=== PATIENT | male | born 1985 | race Two or more races ===

== ENCOUNTER 2024-11-03 14:42 | Inpatient (IN) | payer MEDICAID, OTHER ==
[~2024-11-03] VITALS: Ht 177.8 cm; Wt 64.7 kg
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
[2024-11-03] MEDS: SODIUM CHLORIDE 0.9% 1,000 ML IV ONE (17:10)
[2024-11-03] MEDS: THIAMINE 100mg/ml INJ (200mg/2ml VIAL) IV ONE (17:29)
[2024-11-03] MEDS: NALOXONE HCL 1MG/ML 2ML SYRINGE IV ONE ×2 (20:05→21:04)
[2024-11-03] MEDS: NALOXONE HCL 1MG/ML 2ML SYRINGE ONE (20:06)
[2024-11-03 20:28] LABS: Hematocrit 37.9 % (41.0-53.0); Hemoglobin 13.3 g/dL (13.5-17.5); Mean Corpuscular Hemoglobin 34.7 pg (28.0-32.0); Mean Corpuscular Volume 99.1 fL (80.0-100.0); Nucleated Red Blood Cells % 0.0 %
[2024-11-03 20:47] LABS: Alanine Aminotransferase 26 U/L (7-40); Albumin 4.4 g/dL (3.2-4.8); Alkaline Phosphatase 103 U/L (46-116); Anion Gap 12 (5-15); Bilirubin, Total 0.3 mg/dL (0.2-1.0); Carbon Dioxide 25 mmol/L (20-31); Magnesium 2.1 mg/dL (1.6-2.6); Total Protein 7.3 g/dL (5.7-8.2)
[2024-11-03 20:48] LABS: Acetaminophen < 2.0 UG/ML (10.0-20.0); Salicylate < 3.0 mg/dL (-30)
[2024-11-03 20:49] LABS: BUN/Creatinine Ratio 6.6 (10.0-20.0); Blood Urea Nitrogen < 5 mg/dL (9-23); Calcium 8.7 mg/dL (8.7-10.4); Chloride 110 mmol/L (98-107); Glucose 140 mg/dL (74-106); Potassium 2.9 mmol/L (3.5-5.1); Sodium 147 mmol/L (136-145)
--- NOTE | 2024-11-03 20:52 | DVH ---
EXAM: CT HEAD WITHOUT CONTRAST INDICATION: ALOC TECHNIQUE: CT of the head without intravenous contrast. Radiation Dose Information: CT Dose: CTDI volume is 58.07 mGy. Dose-length product is 1027.99 mGy*cm The dose indicators for CT are the volume Computed Tomography (CT) Dose Index (CTDIvol) and the Dose Length Product (DLP), and are measured in units of mGy and mGy-cm, respectively. These indicators are not patient dose, but values generated from the CT scanner acquisition factors. The report includes radiation exposure data for exposures received during this examination. COMPARISON: None FINDINGS: There is no evidence of acute intracranial hemorrhage, extra-axial collection, mass effect, midline s hift, herniation or hydrocephalus. The ventricles, sulci and cisterns are age appropriate. The briones-white differentiation is intact. Patchy periventricular and subcortical white matter hypoattenuation is nonspecific but may be related to small vessel ischemic disease. The visualized paranasal sinuses and mastoid air cells are clear. The surrounding soft tissues and osseous structures are unremarkable. IMPRESSION: 1. No acute intracranial abnormality.
--- NOTE | 2024-11-03 20:54 | DVH ---
EXAM: XY CHEST PORTABLE CLINICAL HISTORY: SOB TECHNIQUE: Single AP view of the chest WID: COMPARISON: None FINDINGS: Lines and tubes: Cholecystectomy clips are seen. Chest: The heart size and pulmonary vasculature is within normal limits. No pleural effusion, pneumothorax, or consolidation. Lung apices are not entirely included in the fie ld of view. The osseous structures are grossly intact. IMPRESSION: 1. No acute cardiopulmonary abnormality.
[2024-11-03] MEDS: POTASSIUM CHL 20MEQ/100ML 100 ML IV ONE (22:00)
--- NOTE | 2024-11-03 23:16 | DVHHP2 ---
History of Present Illness Reason for Visit: Altered mental status History of Present Illness 39-year-old male presents for evaluation of altered mental status. Patient initially presented for evaluation of a wound that is healing on his left forearm. He was offered discharge and was not able to be located by ER nurses. Patient was found unresponsive next to a smoking area. After multiple doses of Narcan patient became responsive. Currently he is alert oriented. Reports using an unknown drug purchased on the street. He also had a high alcohol level. No other acute complaints reported. Past Medical History Denies Past Surgical History Denies Smoke: No ALCOHOL: heavy Drugs: Marijuana Review of Systems Review of Systems Review of systems are currently negative otherwise addressed in HPI. Allergies: Coded Allergies: Levofloxacin (Verified Allergy, Unknown, 11/03/24) Exam Vital Signs Vital Signs Date Time Temp Pulse Resp B/P (MAP) Pulse Ox O2 Delivery O2 Flow Rate FiO2 11/03/24 20:04 120 11/03/24 17:13 16 97 Room Air 11/03/24 17:13 98.8 108/64 (79) 98.8 Exam Gen: 39-year-old male in no apparent distress. Skin: Warm, dry, normal color and texture, no rash. HEENT: Normocephalic atraumatic, mucous membranes moist and pink. Neck: Cervical and supraclavicular nodes normal without enlargement, trachea is midline, thyroid gland is normal without masses. Pulmonary: Clear to auscultation and percussion bilaterally. Cardiac: Regular rate and rhythm. No murmur Abdomen: Soft, nontender, nondistended, bowel sounds present all 4 quadrants, no guarding, no rigidity, no organomegaly. Extremities: No cyanosis, clubbing, no edema Neuro: Cranial nerves II through XII grossly intact, normal affect and speech, no focal motor deficits. Labs/Xrays ORDERING PHYSICIAN: RAPHAEL VILLA MD PROCEDURE(s): CXRP - CHEST PORTABLE REASON: SOB ORDER NUMBER(s): [id number], ACCESSION NUMBER(s): [id number] EXAM: XY CHEST PORTABLE CLINICAL HISTORY: SOB TECHNIQUE: Single AP view of the chest WID: COMPARISON: None FINDINGS: Lines and tubes: Cholecystectomy clips are seen. Chest: The heart size and pulmonary vasculature is within normal limits. No pleural effusion, pneumothorax, or consolidation. Lung apices are not entirely included in the field of view. The osseous structures are grossly intact. IMPRESSION: 1. No acute cardiopulmonary abnormality. RING PHYSICIAN: RAPHAEL VILAL MD PROCEDURE(s): HWOCT - HEAD WITHOUT CONTRAST REASON: ALOC ORDER NUMBER(s): [id number], ACCESSION NUMBER(s): [id number] EXAM: CT HEAD WITHOUT CONTRAST INDICATION: ALOC TECHNIQUE: CT of the head without intravenous contrast. Radiation Dose Information: CT Dose: CTDI volume is 58.07 mGy. Dose-length product is 1027.99 mGy*cm The dose indicators for CT are the volume Computed Tomography (CT) Dose Index (CTDIvol) and the Dose Length Product (DLP), and are measured in units of mGy and mGy-cm, respectively. These indicators are not patient dose, but values generated from the CT scanner acquisition factors. The report includes radiation exposure data for exposures received during this examination. COMPARISON: None FINDINGS: There is no evidence of acute intracranial hemorrhage, extra-axial collection, mass effect, midline shift, herniation or hydrocephalus. The ventricles, sulci and cisterns are age appropriate. The briones-white differentiation is intact. Patchy periventricular and subcortical white matter hypoattenuation is nonspecific but may be related to small vessel ischemic disease. The visualized paranasal sinuses and mastoid air cells are clear. The surrounding soft tissues and osseous structures are unremarkable. IMPRESSION: 1. No acute intracranial abnormality. Labs Test 11/03/24 20:15 Range/Units White Blood Count 6.3 4.4-10.8 10^3/uL Red Blood Count 3.83 L 4.5-5.90 10^6/uL Hemoglobin 13.3 L 13.5-17.5 g/dL Hematocrit 37.9 L 41.0-53.0 % Mean Corpuscular Volume 99.1 80.0-100.0 fL Mean Corpuscular Hemoglobin 34.7 H 28.0-32.0 pg Mean Corpuscular Hemoglobin Concent 35.1 32.0-36.0 g/dL Red Cell Distribution Width 13.3 11.8-14.3 % Platelet Count 224 140-450 10^3/uL Mean Platelet Volume 6.6 L 6.9-10.8 fL Neutrophils (%) (Auto) 59.7 37.0-80.0 % Lymphocytes (%) (Auto) 29.8 10.0-50.0 % Monocytes (%) (Auto) 7.6 0.0-12.0 % Eosinophils (%) (Auto) 0.9 0.0-7.0 % Basophils (%) (Auto) 2.0 0.0-2.0 % Neutrophils # (Auto) 3.8 1.6-8.6 10 ^3/uL Lymphocytes # (Auto) 1.9 0.4-5.4 10 ^3/uL Monocytes # (Auto) 0.5 0-1.3 10 ^3/uL Eosinophils # (Auto) 0.1 0-0.8 10 ^3/uL Basophils # (Auto) 0.1 0-0.2 10 ^3/uL Nucleated Red Blood Cells 0.0 % Sodium Level 147 H 136-145 mmol/L Potassium Level 2.9 L 3.5-5.1 mmol/L Chloride Level 110 H 98-107 mmol/L Carbon Dioxide Level 25 20-31 mmol/L Anion Gap 12 5-15 Blood Urea Nitrogen < 5 L 9-23 mg/dL Creatinine 0.76 0.700-1.30 mg/dL Glomerular Filtration Rate Calc 117 >90 mL/min BUN/Creatinine Ratio 6.6 L 10.0-20.0 Serum Glucose 140 H 74-106 mg/dL Calcium Level 8.7 8.7-10.4 mg/dL Magnesium Level 2.1 1.6-2.6 mg/dL Total Bilirubin 0.3 0.2-1.0 mg/dL Aspartate Amino Transferase (AST) 26 13-40 U/L Alanine Aminotransferase (ALT) 26 7-40 U/L Alkaline Phosphatase 103 46-116 U/L Total Protein 7.3 5.7-8.2 g/dL Albumin 4.4 3.2-4.8 g/dL Salicylates Level < 3.0 -30 mg/dL Acetaminophen Level < 2.0 L 10.0-20.0 UG/ML Plasma/Serum Blood Alcohol 298.4 H <10 mg/dL SEPSIS Sepsis Screen Date sepsis recognized/suspect: Nov 03, 2024 Time Sepsis recognized/suspect: 1448 Recent Procedure: No On Antibiotic Therapy: No Respiratory Rate >20: No Heart Rate >90: Yes Temp<36 C (96.8 F) or >38.3 C: No SBP <90 or MAP <65 mmHG: No New Acute Mental Status Change: No Is the patient on CPAP, BIPAP,: No Physician Orders Chest Portable (11/03/24 20:07) Head Without Contrast (11/03/24 20:07) Electrocardigram (11/03/24 20:45) Potassium Chl 20meq/100ml (11/03/24 21:15) Drug Screen (11/03/24 21:23) Urinalysis (11/03/24 21:23) Thiamine Tab (11/04/24 10:00) Folic Acid Tablet (11/04/24 10:00) Chlordiazepoxide Hcl Capsule (Librium Ca (11/03/24 23:15) Basic Metabolic Panel (11/04/24 04:00) Admit (11/03/24 23:10) Temazepam (Restoril) (11/03/24 23:15) Ondansetron Hcl (Zofran) (11/03/24 23:15) Condition: Stable (11/03/24 23:10) Bedrest With Bathroom Privileg (11/03/24 23:10) Vital Signs Date Time Temp Pulse Resp B/P (MAP) Pulse Ox O2 Delivery O2 Flow Rate FiO2 11/03/24 20:04 120 11/03/24 17:13 118 16 97 Room Air 11/03/24 17:13 98.8 63 16 108/64 (79) 98 98.8 Laboratory Tests Test 11/03/24 20:15 White Blood Count 6.3 10^3/uL (4.4-10.8) Medications Medications Dose Ordered Sig/Coy Route Start Time Stop Time Status Last Admin Dose Admin Naloxone HCl 2 mg ONCE ONCE IV 11/03/24 20:15 11/03/24 20:16 DC 11/03/24 20:05 2 MG Naloxone HCl 2 mg ONCE ONCE IV 11/03/24 21:15 11/03/24 21:16 DC 11/03/24 21:04 2 MG Sodium Chloride 1,000 ml @ 1,000 mls/hr Q1H ONCE IV 11/03/24 16:15 11/03/24 17:14 DC 11/03/24 17:10 1,000 MLS/HR Thiamine HCl 100 mg ONCE ONCE IV 11/03/24 16:15 11/03/24 16:16 DC 11/03/24 17:29 100 MG Assessment/Plan Assessment/Plan Assessment Toxic encephalopathy Hypokalemia Alcohol intoxication Plan Admit the patient to [facility] to the hospitalist Karmen Thiamine/folic acid Continue treatment per orders. Plan discussed with: Patient My Orders Orders - RACHEL PADILLA Procedure Category Date Status Time Drug Screen LAB 11/03/24 Logged 21:23 Urinalysis LAB 11/03/24 Logged 21:23 Thiamine Tab PHA 11/04/24 Transmitted 10:00 Folic Acid Tablet PHA 11/04/24 Transmitted 10:00 Chlordiazepoxide Hcl PHA 11/03/24 Transmitted Capsule (Librium Ca 23:15 Basic Metabolic Panel LAB 11/04/24 Verified 04:00 Admit ADMIT 11/03/24 Transmitted 23:10 Temazepam (Restoril) PHA 11/03/24 Transmitted 23:15 Ondansetron Hcl PHA 11/03/24 Transmitted (Zofran) 23:15 Condition: Stable JAX 11/03/24 Transmitted 23:10 Bedrest With Bathroom JAX 11/03/24 Transmitted Privileg 23:10 Date of Service: Nov 03, 2024 Billing Provider: RACHEL PADILLA Common Visit Codes: [id number] INP/OBS CARE (MOD) RACHEL PADILLA Nov 03, 2024 23:16
[2024-11-04] MEDS: POTASSIUM CHL 20 Meq TABLET PO ONE
[2024-11-04 04:16] LABS: Potassium 3.7 mmol/L (3.5-5.1)
[2024-11-04 04:17] LABS: Anion Gap 10 (5-15); Calcium 8.8 mg/dL (8.7-10.4); Carbon Dioxide 30 mmol/L (20-31)
[2024-11-04 04:19] LABS: Chloride 107 mmol/L (98-107); Sodium 147 mmol/L (136-145)
[2024-11-04 04:22] LABS: BUN/Creatinine Ratio 7.7 (10.0-20.0); Glucose 99 mg/dL (74-106)
[2024-11-04 04:23] LABS: Blood Urea Nitrogen 5 mg/dL (9-23)
[2024-11-04 06:55] LABS: Urine Protein, UAD 1+ (Negative)
[2024-11-04 07:03] LABS: Amphetamine Screen, Urine Neg (NEGATIVE); Barbiturate Scree,Urine Neg (NEGATIVE); Benzodiazephine Screen, Urine Pos (NEGATIVE); Cannabinoid Screen, Urine Pos (NEGATIVE); Cocaine Screen, Urine Neg (NEGATIVE)
[2024-11-04 07:07] LABS: Opiate Scree,Urine Neg (NEGATIVE); Phencyclidine Screen, Urine Neg (NEGATIVE)
--- NOTE | 2024-11-04 07:09 | ECG ---
[facility] Test Date: 2024-11-03 Test Time: 20:04:44 Pat Name: SPIKE CONTRERAS Department: Room: [address] [place] [address] A Gender: M Nursing Associate: : 1985 Requested By: RAPHAEL VILLA Order Number: [id number] Reading MD: Thomas Matamoros Measurements Intervals [place] Rate: 120 P: 73 MD: 175 QRS: 70 QRSD: 90 T: 29 QT: 322 QTc: 455 Interpretive Statements Sinus tachycardia Borderline T wave abnormalities Electronically Signed On 11-04-2024 14:28:14 PDT by Thomas Matamoros Please click the below link to view image of tracing.
[2024-11-04] MEDS: THIAMINE HCL 100 MG TAB PO SCH (08:06)
[2024-11-04] MEDS: FOLIC ACID 1 MG TAB PO SCH (08:06)
[2024-11-04] MEDS ORDERED: SODIUM CHLORIDE 0.9% 1,000 ML IV SCH (13:45)
--- NOTE | 2024-11-04 13:46 | DVHPN2 ---
Subjective Patient reports having pain to his left wrist. Reviewed: Care Plan, H&P, Labs, Medications, Previous Orders Changes from previous H/P or p: No Changes General: Per HPI Objective Vitals Vital Signs Date Time Temp Pulse Resp B/P (MAP) Pulse Ox O2 Delivery O2 Flow Rate FiO2 11/04/24 12:00 98 11/04/24 11:03 12 120/65 (83) 96 11/04/24 08:00 98.9 98.9 11/04/24 07:33 Room Air* 0 21 General Appearance: Alert, Oriented X3, Cooperative, mild distress HEENT: Atraumatic Lungs: Clear to auscultation, Normal air movement Cardiovascular: Normal S1, Normal S2 Abdomen: Normal bowel sounds, Soft, No tenderness, No hepatospenomegaly Back: Flank Tenderness, Midline Tenderness Musculoskeletal: Normal sensory function, Normal motor function Extremities: No clubbing, No cyanosis Skin: Wounds (See nurse notes and pictures) Psych/Mental Status: Mental status NL, Mood NL Medications Current Medications Medications Dose Ordered Sig/Coy Route Start Time Stop Time Status Last Admin Dose Admin Thiamine HCl 100 mg DAILY PO 11/04/24 10:00 11/04/24 08:06 100 MG Folic Acid 1 mg DAILY PO 11/04/24 10:00 11/04/24 08:06 1 MG Chlordiazepoxide HCl 25 mg Q8HPRN PRN PO 11/03/24 23:15 Temazepam 15 mg QHSP PRN PO 11/03/24 23:15 Ondansetron HCl 4 mg Q4HP PRN IV 11/03/24 23:15 Sodium Chloride 1,000 ml @ 100 mls/hr Q10H IV 11/04/24 13:45 UNV Laboratory Results Laboratory Tests 11/03/24 20:15 11/04/24 03:43 Chemistry Test 11/03/24 20:15 11/04/24 03:43 Albumin 4.4 g/dL (3.2-4.8) Calcium Level 8.7 mg/dL (8.7-10.4) 8.8 mg/dL (8.7-10.4) Magnesium Level 2.1 mg/dL (1.6-2.6) Total Protein 7.3 g/dL (5.7-8.2) LFT Test 11/03/24 20:15 Alanine Aminotransferase (ALT) 26 U/L (7-40) Alkaline Phosphatase 103 U/L (46-116) Aspartate Amino Transferase (AST) 26 U/L (13-40) Total Bilirubin 0.3 mg/dL (0.2-1.0) Urinalysis Test 11/04/24 06:35 Urine Color Light-yellow (Yellow) Urine Clarity Clear (Clear) Urine pH 6.0 (5.0-9.0) Urine Specific [place] 1.013 (1.001-1.035) Urine Protein 1+ (Negative) H Urine Ketones Negative (Negative) Urine Blood Negative /uL (Negative) Urine Nitrite Negative (Negative) Urine Bilirubin Negative (Negative) Urine Urobilinogen Normal mg/dL (Negative) Urine Leukocyte Esterase Negative /uL (Negative) Urine RBC 1 /hpf (0 - 3) Urine Microscopic WBC 1 /HPF (0-3) Urine Squamous Epithelial Cells None seen /hpf (<5) Urine Bacteria None seen /hpf (None Seen) Urine Glucose Normal mg/dL (Normal) Labs and/or images reviewed: Labs reviewed by me, Image(s) reviewed by me Assessment/Plan Assessment/Plan Impression: -toxic metabolic encephalopathy -acute alcohol withdrawal -left wrist cellulitis -polysubstance abuse including fentanyl, cannabinoids, alcohol, benzodiazepines Plan: -IV hydration -Silvadene cream to left wrist -continue Librium for withdrawal symptoms -antiemetics -pain management Total time spent with patient discussing and formulating plan of care: 35 minutes. This medical document was created using an electronic medical record system with [employer] dictation system. Although this document has been carefully reviewed, there may still be some phonetic and typographical errors. These areas are purely typographical due to imperfections of the software programs, and do not reflect any compromise in the patient's medical care. Plan discussed with: Patient, Other (RN) My Orders Orders - PAYAL SANCHEZ NP Procedure Category Date Status Time Sodium Chloride 0.9% PHA 11/04/24 Logged 13:45 Hydrocodone-Acet PHA 11/04/24 Transmitted 10/325mg Tab ([place] 13:45 Silver Sulfadiazine PHA 11/04/24 Transmitted (Silvadene) 13:45 Date of Service: Nov 04, 2024 Billing Provider: PAYAL SANCHEZ NP Common Visit Codes: [id number] INP/OBS CARE(HIGH) PAYAL SANCHEZ NP Nov 04, 2024 13:46
[2024-11-04] MEDS: SILVER SULFADIAZINE 1 % TOPICAL CREAM 50GM TOP SCH (14:27)
[2024-11-04] MEDS: HYDROcodone-ACET 10/325MG TAB PO PRN (14:39)
[2024-11-04] MEDS: LACTATED RINGER'S 1,000 ML IV SCH (14:56)
[2024-11-04 19:18] VITALS: PULSE 107; RESP 16; O2SAT 96
[2024-11-04] MEDS: TEMAZEPAM 15 MG CAP PO PRN (22:14)
[2024-11-04] MEDS ORDERED: QUET300T24 PO (22:18)
[2024-11-04] MEDS ORDERED: DIAZ10TA3 PO (23:20)
[2024-11-05] VITALS (9 sets, daily range): BP systolic 118–136; BP diastolic 81–91; PULSE 82–90; RESP 16–20; TEMP 97.1–98.5; O2SAT 93–99
[2024-11-05] MEDS: ONDANSETRON HCL 4 MG/2 ML VIAL IV PRN (08:28)
--- NOTE | 2024-11-05 15:11 | DVHPN2 ---
Subjective Tremors Reviewed: Care Plan, H&P, Labs, Medications, Previous Orders Changes from previous H/P or p: No Changes General: Per HPI Objective Vitals Vital Signs Date Time Temp Pulse Resp B/P (MAP) Pulse Ox O2 Delivery O2 Flow Rate FiO2 11/05/24 14:36 98.5 82 20 132/91 (105) 98 98.5 11/05/24 13:41 Room Air* 0 21 General Appearance: Alert, Oriented X3, Cooperative, mild distress HEENT: Atraumatic Lungs: Clear to auscultation, Normal air movement Cardiovascular: Normal S1, Normal S2 Abdomen: Normal bowel sounds, Soft, No tenderness, No hepatospenomegaly Back: Flank Tenderness, Midline Tenderness Musculoskeletal: Normal sensory function, Normal motor function Extremities: No clubbing, No cyanosis Skin: Wounds (See nurse notes and pictures) Psych/Mental Status: Mental status NL, Mood NL Medications Current Medications Medications Dose Ordered Sig/Coy Route Start Time Stop Time Status Last Admin Dose Admin Thiamine HCl 100 mg DAILY PO 11/04/24 10:00 11/05/24 09:39 100 MG Folic Acid 1 mg DAILY PO 11/04/24 10:00 11/05/24 09:39 1 MG Chlordiazepoxide HCl 25 mg Q8HPRN PRN PO 11/03/24 23:15 11/05/24 10:28 25 MG Temazepam 15 mg QHSP PRN PO 11/03/24 23:15 11/04/24 22:14 15 MG Ondansetron HCl 4 mg Q4HP PRN IV 11/03/24 23:15 11/05/24 08:28 4 MG Acetaminophen/ Hydrocodone Bitart 1 tab Q6HP PRN PO 11/04/24 13:45 11/05/24 11:38 1 TAB Silver Sulfadiazine 1 applic DAILY TOP 11/04/24 13:45 11/04/24 14:27 1 APPLIC Lactated Ringer's 1,000 ml @ 100 mls/hr Q10H IV 11/04/24 14:45 11/04/24 14:56 100 MLS/HR Laboratory Results Laboratory Tests 11/03/24 20:15 11/04/24 03:43 Urinalysis Test 11/04/24 06:35 Urine Color Light-yellow (Yellow) Urine Clarity Clear (Clear) Urine pH 6.0 (5.0-9.0) Urine Specific [place] 1.013 (1.001-1.035) Urine Protein 1+ (Negative) H Urine Ketones Negative (Negative) Urine Blood Negative /uL (Negative) Urine Nitrite Negative (Negative) Urine Bilirubin Negative (Negative) Urine Urobilinogen Normal mg/dL (Negative) Urine Leukocyte Esterase Negative /uL (Negative) Urine RBC 1 /hpf (0 - 3) Urine Microscopic WBC 1 /HPF (0-3) Urine Squamous Epithelial Cells None seen /hpf (<5) Urine Bacteria None seen /hpf (None Seen) Urine Glucose Normal mg/dL (Normal) Assessment/Plan Assessment/Plan Impression: -toxic metabolic encephalopathy -acute alcohol withdrawal -left wrist cellulitis -polysubstance abuse including fentanyl, cannabinoids, alcohol, benzodiazepines Plan: Events: Persistent withdrawal symptoms -Silvadene cream to left wrist -continue Librium for withdrawal symptoms -antiemetics -pain management -Repeat labs in am Total time spent with patient discussing and formulating plan of care: 35 minutes. This medical document was created using an electronic medical record system with [employer] dictation system. Although this document has been carefully reviewed, there may still be some phonetic and typographical errors. These areas are purely typographical due to imperfections of the software programs, and do not reflect any compromise in the patient's medical care. Plan discussed with: Patient, Other (RN) My Orders Orders - PAYAL SANCHEZ NP Procedure Category Date Status Time * Cso CONS 11/04/24 Transmitted Consult 22:52 Mrsa Screen NABIL 11/04/24 Uncollected 22:52 * Dietary Consult CONS 11/04/24 Transmitted 22:52 Regular Diet DIET 11/05/24 Transmitted Dinner Basic Metabolic Panel LAB 11/06/24 Verified 04:00 Date of Service: Nov 05, 2024 Billing Provider: PAYAL SANCHEZ NP Common Visit Codes: [id number] INP/OBS CARE(HIGH) PAYAL SANCHEZ NP Nov 05, 2024 15:11
[2024-11-06] VITALS (7 sets, daily range): BP systolic 106–138; BP diastolic 56–90; PULSE 18–89; RESP 16–88; TEMP 97.7–98.8; O2SAT 95–98
[2024-11-06 06:42] LABS: Anion Gap 10 (5-15); Carbon Dioxide 28 mmol/L (20-31); Chloride 102 mmol/L (98-107); Sodium 140 mmol/L (136-145)
[2024-11-06 06:44] LABS: Calcium 9.3 mg/dL (8.7-10.4)
[2024-11-06 06:47] LABS: Potassium 3.4 mmol/L (3.5-5.1)
[2024-11-06 06:48] LABS: Glucose 83 mg/dL (74-106)
[2024-11-06 06:49] LABS: BUN/Creatinine Ratio 10.8 (10.0-20.0); Blood Urea Nitrogen 7 mg/dL (9-23)
--- NOTE | 2024-11-06 09:08 | DVHPN2 ---
Subjective Patient continues to have cold sweats and tremors. Reviewed: Care Plan, H&P, Labs, Medications, Previous Orders Changes from previous H/P or p: No Changes General: Per HPI Objective Vitals Vital Signs Date Time Temp Pulse Resp B/P (MAP) Pulse Ox O2 Delivery O2 Flow Rate FiO2 11/06/24 05:00 98.1 82 17 106/56 (73) 97 98.1 11/05/24 20:00 Room Air* 0 21 Intake/Output Intake and Output 11/06/24 07:00 Intake Total 450 ml Balance 450 ml Intake Oral 450 ml General Appearance: Alert, Oriented X3, Cooperative, mild distress HEENT: Atraumatic Lungs: Clear to auscultation, Normal air movement Cardiovascular: Normal S1, Normal S2 Abdomen: Normal bowel sounds, Soft, No tenderness, No hepatospenomegaly Back: Flank Tenderness, Midline Tenderness Musculoskeletal: Normal sensory function, Normal motor function Extremities: No clubbing, No cyanosis Skin: Wounds (See nurse notes and pictures) Psych/Mental Status: Mental status NL, Mood NL Medications Current Medications Medications Dose Ordered Sig/Coy Route Start Time Stop Time Status Last Admin Dose Admin Thiamine HCl 100 mg DAILY PO 11/04/24 10:00 11/05/24 09:39 100 MG Folic Acid 1 mg DAILY PO 11/04/24 10:00 11/05/24 09:39 1 MG Chlordiazepoxide HCl 25 mg Q8HPRN PRN PO 11/03/24 23:15 11/06/24 05:41 25 MG Temazepam 15 mg QHSP PRN PO 11/03/24 23:15 11/05/24 23:38 15 MG Ondansetron HCl 4 mg Q4HP PRN IV 11/03/24 23:15 11/05/24 08:28 4 MG Acetaminophen/ Hydrocodone Bitart 1 tab Q6HP PRN PO 11/04/24 13:45 11/06/24 00:29 1 TAB Silver Sulfadiazine 1 applic DAILY TOP 11/04/24 13:45 11/04/24 14:27 1 APPLIC Lactated Ringer's 1,000 ml @ 100 mls/hr Q10H IV 11/04/24 14:45 11/05/24 20:36 100 MLS/HR Laboratory Results Laboratory Tests 11/03/24 20:15 11/06/24 05:19 Chemistry Test 11/06/24 05:19 Calcium Level 9.3 mg/dL (8.7-10.4) Urinalysis Test 11/04/24 06:35 Urine Color Light-yellow (Yellow) Urine Clarity Clear (Clear) Urine pH 6.0 (5.0-9.0) Urine Specific [place] 1.013 (1.001-1.035) Urine Protein 1+ (Negative) H Urine Ketones Negative (Negative) Urine Blood Negative /uL (Negative) Urine Nitrite Negative (Negative) Urine Bilirubin Negative (Negative) Urine Urobilinogen Normal mg/dL (Negative) Urine Leukocyte Esterase Negative /uL (Negative) Urine RBC 1 /hpf (0 - 3) Urine Microscopic WBC 1 /HPF (0-3) Urine Squamous Epithelial Cells None seen /hpf (<5) Urine Bacteria None seen /hpf (None Seen) Urine Glucose Normal mg/dL (Normal) Labs and/or images reviewed: Labs reviewed by me, Image(s) reviewed by me Assessment/Plan Assessment/Plan Impression: -toxic metabolic encephalopathy -acute alcohol withdrawal -left wrist cellulitis -polysubstance abuse including fentanyl, cannabinoids, alcohol, benzodiazepines Plan: Events: Patient continues to have fevers, chills, intermittent nausea. -potassium replacement -Silvadene cream to left wrist -continue Librium for withdrawal symptoms -antiemetics -pain management -Repeat labs in am Total time spent with patient discussing and formulating plan of care: 35 minutes. This medical document was created using an electronic medical record system with [employer] dictation system. Although this document has been carefully reviewed, there may still be some phonetic and typographical errors. These areas are purely typographical due to imperfections of the software programs, and do not reflect any compromise in the patient's medical care. Plan discussed with: Patient, Other (RN) My Orders Orders - PAYAL SANCHEZ NP Procedure Category Date Status Time Regular Diet DIET 11/05/24 Transmitted Dinner Potassium Effervesent PHA 11/06/24 Logged Tab (Klor-Con/Ef) 09:00 Date of Service: Nov 06, 2024 Billing Provider: PAYAL SANCHEZ NP Common Visit Codes: [id number] INP/OBS CARE(HIGH) PAYAL SANCHEZ NP Nov 06, 2024 09:08
[2024-11-06] MEDS: POTASSIUM EFFERVESENT TAB 25 MEQ PO ONE (10:06)
--- NOTE | 2024-11-06 18:44 | DVH ---
EXAM: XY CHEST XRAY 1 VIEW TECHNIQUE: Single frontal chest radiograph CLINICAL HISTORY: chest pain, rule out rib fx COMPARISON: XY CHEST PORTABLE on DOS: 11/03/24 Findings/Impression: Frontal chest radiograph demonstrates no acute osseous or superficial soft tissue abnormalities. The trachea is midline. The cardiac silhouette and mediastinum are within normal limits. No pneumothorax, pleural effusions, or consolidations.
[2024-11-07 01:00] VITALS: BP 125/85; PULSE 69; RESP 17; TEMP 98; O2SAT 99
[2024-11-07 05:00] VITALS: BP 123/82; PULSE 75; RESP 16; TEMP 97.6; O2SAT 98
[2024-11-07 07:24] LABS: Anion Gap 10 (5-15); Carbon Dioxide 27 mmol/L (20-31); Chloride 104 mmol/L (98-107); Potassium 3.7 mmol/L (3.5-5.1); Sodium 141 mmol/L (136-145)
[2024-11-07 07:26] LABS: Calcium 9.5 mg/dL (8.7-10.4)
[2024-11-07 07:30] LABS: Glucose 88 mg/dL (74-106)
[2024-11-07 07:31] LABS: BUN/Creatinine Ratio 11.5 (10.0-20.0)
[2024-11-07 07:33] LABS: Blood Urea Nitrogen 7 mg/dL (9-23)
[2024-11-07 09:00] VITALS: BP 129/88; PULSE 71; RESP 18; TEMP 97.7; O2SAT 99
[2024-11-07] MEDS ORDERED: THIA100T10 PO (12:05)
[2024-11-07] MEDS ORDERED: LORA-655 PO (12:05)
[2024-11-07 13:00] VITALS: BP 111/74; PULSE 92; RESP 18; TEMP 97.8; O2SAT 98
--- NOTE | 2024-11-07 13:11 | DVHDS2 ---
Discharge Summary Date of Admission Nov 03, 2024 at 23:10 Date of Discharge: Nov 07, 2024 Admitting Diagnosis Toxic metabolic encephalopathy Labs/Diagnostic Data: Laboratory Results Test 11/07/24 06:28 11/04/24 06:35 11/03/24 20:15 Sodium Level 141 mmol/L (136-145) Potassium Level 3.7 mmol/L (3.5-5.1) Chloride Level 104 mmol/L (98-107) Carbon Dioxide Level 27 mmol/L (20-31) Anion Gap 10 (5-15) Blood Urea Nitrogen 7 mg/dL (9-23) Creatinine 0.61 mg/dL (0.700-1.30) Glomerular Filtration Rate Calc 125 mL/min (>90) BUN/Creatinine Ratio 11.5 (10.0-20.0) Serum Glucose 88 mg/dL (74-106) Calcium Level 9.5 mg/dL (8.7-10.4) Urine Color Light-yellow (Yellow) Urine Clarity Clear (Clear) Urine pH 6.0 (5.0-9.0) Urine Specific [place] 1.013 (1.001-1.035) Urine Protein 1+ (Negative) Urine Ketones Negative (Negative) Urine Blood Negative /uL (Negative) Urine Nitrite Negative (Negative) Urine Bilirubin Negative (Negative) Urine Urobilinogen Normal mg/dL (Negative) Urine Leukocyte Esterase Negative /uL (Negative) Urine RBC 1 /hpf (0 - 3) Urine Microscopic WBC 1 /HPF (0-3) Urine Squamous Epithelial Cells None seen /hpf (<5) Urine Bacteria None seen /hpf (None Seen) Urine Glucose Normal mg/dL (Normal) Urine Opiates Screen Neg (NEGATIVE) Urine Fentanyl Screen Pos (NEGATIVE) Urine Barbiturates Screen Neg (NEGATIVE) Urine Phencyclidine Screen Neg (NEGATIVE) Urine Amphetamines Screen Neg (NEGATIVE) Urine Benzodiazepines Screen Pos (NEGATIVE) Urine Cocaine Screen Neg (NEGATIVE) Urine Cannabinoids Screen Pos (NEGATIVE) White Blood Count 6.3 10^3/uL (4.4-10.8) Red Blood Count 3.83 10^6/uL (4.5-5.90) Hemoglobin 13.3 g/dL (13.5-17.5) Hematocrit 37.9 % (41.0-53.0) Mean Corpuscular Volume 99.1 fL (80.0-100.0) Mean Corpuscular Hemoglobin 34.7 pg (28.0-32.0) Mean Corpuscular Hemoglobin Concent 35.1 g/dL (32.0-36.0) Red Cell Distribution Width 13.3 % (11.8-14.3) Platelet Count 224 10^3/uL (140-450) Mean Platelet Volume 6.6 fL (6.9-10.8) Neutrophils (%) (Auto) 59.7 % (37.0-80.0) Lymphocytes (%) (Auto) 29.8 % (10.0-50.0) Monocytes (%) (Auto) 7.6 % (0.0-12.0) Eosinophils (%) (Auto) 0.9 % (0.0-7.0) Basophils (%) (Auto) 2.0 % (0.0-2.0) Neutrophils # (Auto) 3.8 10 ^3/uL (1.6-8.6) Lymphocytes # (Auto) 1.9 10 ^3/uL (0.4-5.4) Monocytes # (Auto) 0.5 10 ^3/uL (0-1.3) Eosinophils # (Auto) 0.1 10 ^3/uL (0-0.8) Basophils # (Auto) 0.1 10 ^3/uL (0-0.2) Nucleated Red Blood Cells 0.0 % Magnesium Level 2.1 mg/dL (1.6-2.6) Total Bilirubin 0.3 mg/dL (0.2-1.0) Aspartate Amino Transferase (AST) 26 U/L (13-40) Alanine Aminotransferase (ALT) 26 U/L (7-40) Alkaline Phosphatase 103 U/L (46-116) Total Protein 7.3 g/dL (5.7-8.2) Albumin 4.4 g/dL (3.2-4.8) Salicylates Level < 3.0 mg/dL (-30) Acetaminophen Level < 2.0 UG/ML (10.0-20.0) Plasma/Serum Blood Alcohol 298.4 mg/dL (<10) Other Laboratory Tests 11/07/24 06:28 11/03/24 20:15 Brief Hx & Hospital Course: History of Present Illness 39-year-old male presents for evaluation of altered mental status. Patient initially presented for evaluation of a wound that is healing on his left forearm. He was offered discharge and was not able to be located by ER nurses. Patient was found unresponsive next to a smoking area. After multiple doses of Narcan patient became responsive. Currently he is alert oriented. Reports using an unknown drug purchased on the street. He also had a high alcohol level. No other acute complaints reported. Course of hospitalization: Patient was found to have severe withdrawal symptoms including nausea, sweats, shivering,. Patient was given IV hydration, potassium replete, as well as started on a tapering dose of Librium. Patient was also continued on thiamine 100 mg p.o. daily, and Ativan for breakthrough withdrawal symptoms. Today, patient was symptoms have improved dramatically. Patient will be discharged home and continued on lorazepam 0.5 mg p.o. q.h.s. to assist with any withdrawal symptoms as well as to assist with sleeping. Social service consultation will provide patient with addiction rehabilitation resources. Patient was follow up with the discharge Clinic in one week. Physical examination General: Alert and Oriented x3. No acute distress. Well-nourished. Eyes: EOMI. Anicteric. HENT: Moist mucous membranes. Lungs: Clear to auscultation bilaterally. No accessory muscle use. Cardiovascular: Regular rate and rhythm. No murmur. No JVD. Abdomen: Soft, non-tender and non-distended. No palpable masses. Extremities: No edema. Non-tender. Skin: No rashes or lesions. Warm. Neurologic: No focal neurological deficits. CN II-XII grossly intact, but not individually tested. Psychiatric: Cooperative. Appropriate mood and affect. Total time spent with patient discussing and formulating plan of care: 35 minutes. This medical document was created using an electronic medical record system with [employer] dictation system. Although this document has been carefully reviewed, there may still be some phonetic and typographical errors. These areas are purely typographical due to imperfections of the software programs, and do not reflect any compromise in the patient's medical care. Condition at Discharge: Guarded Final Diagnosis/Problems List Toxic metabolic encephalopathy -acute alcohol withdrawal -left wrist cellulitis -polysubstance abuse including fentanyl, cannabinoids, alcohol, benzodiazepines Discharge Disposition: Home Discharge Instruct/Medications Diet: Regular Activity: No Restrictions, As Tolerated Medications: Ativan 0.5 mg p.o. q.h.s. x5 days Thiamine 100 mg p.o. daily Scheduled Quetiapine Fumerate (Quetiapine Fumarate), 300 MG PO HS, (Reported) Thiamine Hcl (Vitamin B-1), 100 MG PO DAILY Scheduled PRN Lorazepam (Ativan), 0.5 MG PO QHSP PRN Miscellaneous Medications Diazepam (Diazepam), 10 MG PO, (Reported) 36 Discharge Statement: "Patient was advised to return to the ER or call 911 if any headaches, dizziness, shortness of breath, chest pain, abdominal pain, bleeding, fevers, or worsening of medical condition. Patient was counseled about treatment plan, medications, possible side effects, patientverbalized understanding. All questions were answered to the best of my ability. This discharge took greater then 30 minutes in planning, reviewing documentation, counseling the patient, and discussing with other team members." ASSESSMENT ASSESSMENT Assessment Toxic metabolic encephalopathy Date of Service: Nov 07, 2024 Billing Provider: PAYAL SANCHEZ NP Common Visit Codes: [id number] DISCH DAY >30min PAYAL SANCHEZ NP Nov 07, 2024 13:11
== END 2024-11-07 16:20 | disposition home or self-care (01) | DRG 812 ==
LOC: ER 14:42 → OVERFLOW 23:10 → EAST 11-05 14:34
PROVIDERS: ADMIT Nurse Practitioner Acute Care; ATTEND Nurse Practitioner Acute Care
DX: T50.991A Poisoning by other drugs, medicaments and biological substances, accidental (unintentional), initial encounter (principal); G92.8 Other toxic encephalopathy; Y92.89 Other specified places as the place of occurrence of the external cause; E87.6 Hypokalemia; F19.10 Other psychoactive substance abuse, uncomplicated; F12.10 Cannabis abuse, uncomplicated; F11.10 Opioid abuse, uncomplicated; F13.10 Sedative, hypnotic or anxiolytic abuse, uncomplicated; F10.139 Alcohol abuse with withdrawal, unspecified; Z88.1 Allergy status to other antibiotic agents; L03.114 Cellulitis of left upper limb; Z88.8 Allergy status to other drugs, medicaments and biological substances; Y90.8 Blood alcohol level of 240 mg/100 ml or more
CPT/HCPCS: 36415; 70450; 71045; 80048; 80053; 80307; 80320; 80329; 81001; 83735; 85025; 87081; 93005; 96361; 96374; 99291; G0378; J2405